=== PATIENT | female | born 1985 | race Caucasian/White ===

== ENCOUNTER 2018-11-26 11:00 | Inpatient (IN) | payer BC ==
[~2018-11-26] VITALS: Ht 162.6 cm; Wt 131.5 kg
[2018-11-26 11:41] LABS: HEMATOCRIT 37.6 % (36-48); MEAN CORPUSCULAR HEMOGLOBIN 28.2 pg (27.0-33.0); MEAN CORPUSCULAR HGB CONC 33.6 g/dL (32.0-36.0); MEAN CORPUSCULAR VOLUME 83.9 fL (79-99); PLATELET COUNT (AUTO) 205 K/uL (130-400); RED BLOOD CELL COUNT(AUTO) 4.48 MIL/uL (4.00-5.50); RED CELL DISTRIBUTION WIDTH 14.9 % (11.0-15.5); WHITE BLOOD COUNT (AUTO) 9.5 K/uL (4.8-10.8)
[2018-11-27 07:12] LABS: HEPATITIS Bs ANTIGEN SCREEN P Negative (Negative)
[2018-11-28] MEDS ORDERED: LACTATED RINGERS 1000ML 1,000 ML IV SCH (05:45)
[2018-11-28] MEDS ORDERED: CEFAZOLIN SODIUM 1 GM VIAL IVP PRN (05:45)
[2018-11-28] MEDS ORDERED: ONDANSETRON HCL 4 MG/2 ML VIAL ONE (06:33)
[2018-11-28] MEDS ORDERED: OXYTOCIN 10 USP UNITS/ML ONE ×2 (06:34→06:35)
[2018-11-28] MEDS ORDERED: FENTANYL CITRATE PF 50 MCG/1 ML 2ML VIAL ONE (06:35)
[2018-11-28] MEDS ORDERED: EPHEDRINE SULFATE 50 MG/ML AMPULE ONE ×2 (06:35→07:59)
[2018-11-28] MEDS ORDERED: DURAMORPH PF1 MG/ML 10ML AMP IV ONE (06:35)
[2018-11-28] MEDS ORDERED: CEFAZOLIN SODIUM 1 GM VIAL IVP ONE (07:48)
[2018-11-28] MEDS ORDERED: PHENYLEPHRINE HCL 10 MG/ML 1ML VIAL IV ONE (07:58)
[2018-11-28] MEDS ORDERED: CALDOLOR 800MG+NS 250ML 250 ML IV ONE (09:38)
[2018-11-28] MEDS ORDERED: MORPHINE SULFATE 2 MG/ML 1ML SYG ONE (09:39)
[2018-11-28] MEDS ORDERED: MORPHINE SULFATE 2 MG/ML 1ML SYG IVP PRN (09:45)
[2018-11-28] MEDS ORDERED: LEVO175T9 PO (09:56)
[2018-11-28] MEDS ORDERED: PNV1TABL17 PO (09:56)
[2018-11-28] MEDS ORDERED: DIPH25 PO (09:56)
[2018-11-28] MEDS ORDERED: METF-444 PO (09:56)
--- NOTE | 2018-11-28 11:05 | NUR ---
PATIENT ARRIVED FROM LABOR AND DELIVERY VIA BED. PATIENT AWAKE ALERT AND ORIENTED. DRESSING INTACT. FUNDUS FIRM, BLEEDING IS SCANT. SCDS APPLIED TO LOWER BILATERAL EXTREMITIES. PATIENT ORIENTED TO ROOM, CALL LIGHT LEFT IN REACH. ADVISED PATIENT TO CALL WITH ANY NEEDS OR CONCERNS.
[2018-11-28 11:09] VITALS: BP 127/61
[2018-11-28] MEDS ORDERED: MEPERIDINE-PF 75 MG/ML SYG IM PRN (11:30)
[2018-11-28] MEDS ORDERED: OXYTOCIN-LR 20 UNITS/1000 ML 1,000 ML IV PRN (11:30)
[2018-11-28] MEDS: ONDANSETRON HCL 4 MG/2 ML VIAL IVP PRN ×2 (12:09→16:08)
[2018-11-28] MEDS ORDERED: MEPERIDINE-PF 50 MG/ML SYG ONE ×2 (13:59→23:13)
[2018-11-28] MEDS ORDERED: MEPERIDINE-PF 25 MG/ML SYG ONE ×2 (13:59→23:13)
[2018-11-28] MEDS: PROMETHAZINE HCL 25 MG/ML 1ML AMPULE IM PRN ×2 (14:07→23:19)
[2018-11-28 16:59] VITALS: BP 130/63
--- NOTE | 2018-11-28 17:15 | NUR ---
COMFORT OOZING NOTED ON INCISION. GOLDIE MADE WHERE OOZING WAS NOTED. PERICARE GIVEN ASSISTED BY LINK CHAPMAN. CALL LIGHT LEFT IN REACH. AT BEDSIDE.
[2018-11-28] MEDS: CALDOLOR 800MG+NS 250ML 250 ML IV SCH (17:55)
[2018-11-28 19:19] VITALS: BP 119/71
[2018-11-28] MEDS: DEXTROSE 5 %-0.45 % NACL 1,000 ML IV PRN (21:43)
[2018-11-28 23:18] VITALS: BP 96/58
[2018-11-29] MEDS: CALDOLOR 800MG+NS 250ML 250 ML IV SCH (01:57)
[2018-11-29 03:35] VITALS: BP 98/51
[2018-11-29] MEDS ORDERED: ACETAMINOPHEN EXTRA STRENGTH 500 MG TABLET PO PRN (05:45)
[2018-11-29] MEDS ORDERED: DIPHENHYDRAMINE HCL 25 MG CAPSULE PO PRN (05:45)
[2018-11-29] MEDS ORDERED: LANOLIN 30GM OINTMENT TP PRN (05:45)
[2018-11-29] MEDS ORDERED: BISACODYL 10 MG SUPP.RECT RC PRN (05:45)
[2018-11-29] MEDS ORDERED: HYDROCODONE/ACETAMINOPHEN 5/325 MG TAB PO PRN (05:45)
[2018-11-29] MEDS: DEXTROSE 5 %-0.45 % NACL 1,000 ML IV PRN (06:14)
--- NOTE | 2018-11-29 06:45 | NUR ---
Marlow catheter removed, tip intact, pericare done, abdominal dressing removed, incision is dry and intact with acrlos, applied telfa dressing, applied abdominal dressing. assisted to bedside chair. pt tolerated well. informed to call for any concerns or assistance, pt voiced understanding. Addendum: 11/29/18 at 0736 by BRIDGETT AYALA RN Amended: Links added.
[2018-11-29 07:23] LABS: HEMATOCRIT 33.7 % (36-48); MEAN CORPUSCULAR HEMOGLOBIN 28.2 pg (27.0-33.0); MEAN CORPUSCULAR VOLUME 85.7 fL (79-99); PLATELET COUNT (AUTO) 163 K/uL (130-400); RED BLOOD CELL COUNT(AUTO) 3.93 MIL/uL (4.00-5.50); RED CELL DISTRIBUTION WIDTH 15.3 % (11.0-15.5); WHITE BLOOD COUNT (AUTO) 9.5 K/uL (4.8-10.8)
[2018-11-29 07:55] VITALS: BP 111/67
[2018-11-29] MEDS: DOCUSATE SODIUM 100 MG CAP PO SCH ×2 (09:42→23:39)
[2018-11-29] MEDS: SIMETHICONE 80 MG TAB.CHEW PO PRN ×4 (09:42→23:39)
[2018-11-29] MEDS: IBUPROFEN 600 MG TABLET PO PRN ×3 (09:43→23:40)
[2018-11-29] MEDS: DIPH,PERTUSS(ACELL),TET VAC/PF 0.5 ML VIAL IM SCH (09:43)
[2018-11-29] MEDS ORDERED: FLU VACC QS2019-20 36MOS UP/PF 60 MCG/0.5 ML ML IM ONE (09:45)
[2018-11-29 11:39] VITALS: BP 133/79
[2018-11-29] MEDS: ACETAMINOPHEN-CODEINE 300/30MG TAB PO PRN (13:42)
[2018-11-29 17:49] VITALS: BP 130/80
--- NOTE | 2018-11-29 17:50 | NUR ---
ACTIVITY PT AMBULATED HALLWAY, STEADY GAIT, TOLERATED WELL
[2018-11-29 19:34] VITALS: BP 129/78
[2018-11-29 23:30] VITALS: BP 124/68
[2018-11-30 03:49] VITALS: BP 105/56
[2018-11-30 07:36] VITALS: BP 123/65
[2018-11-30] MEDS: IBUPROFEN 600 MG TABLET PO PRN (07:49)
[2018-11-30] MEDS: DIPH,PERTUSS(ACELL),TET VAC/PF 0.5 ML VIAL IM SCH (09:00)
[2018-11-30] MEDS: DOCUSATE SODIUM 100 MG CAP PO SCH (09:26)
[2018-11-30] MEDS: SIMETHICONE 80 MG TAB.CHEW PO PRN (09:26)
[2018-11-30 11:50] VITALS: BP 124/78
[2018-11-30] MEDS: ACETAMINOPHEN-CODEINE 300/30MG TAB PO PRN (12:08)
--- NOTE | 2018-11-30 13:25 | NUR ---
ACTIVITY PT AMBULATING HALLWAY, STEADY GAIT, TOLERATING WELL, NO C/O PAIN
--- NOTE | 2018-11-30 15:25 | NUR ---
DISCHARGE PT STABLE, NO PAIN, NO COMPLAINTS; PT LEFT UNIT, VIA WHEELCHAIR, WITH BABY IN CAR-SEAT ON HER LAP, ACCOMPANIED BY RN AND SPOUSE CARRYING ALL PERSONAL BELONGINGS, INSTRUCTIONS, AND PRESCRIPTION; PT LEFT FACILITY IN PERSONAL VEHICLE
== END 2018-11-30 15:25 | disposition home or self-care (01) | DRG 788 ==
LOC: LDH 11-28 05:38 → WSH 11-28 11:14
PROVIDERS: ADMIT Obstetrics & Gynecology; ATTEND Obstetrics & Gynecology
PROC: 0DQ80ZZ Repair Small Intestine, Open Approach (ICD-10-PCS; 2018-11-28)
PROC: 3E02340 Introduction of Influenza Vaccine into Muscle, Percutaneous Approach (ICD-10-PCS; 2018-11-28)
PROC: 3E0234Z Introduction of Serum, Toxoid and Vaccine into Muscle, Percutaneous Approach (ICD-10-PCS; 2018-11-28)
PROC: 10D00Z0 Extraction of Products of Conception, High, Open Approach (ICD-10-PCS; principal; 2018-11-28 07:30)
DX: O34.211 Maternal care for low transverse scar from previous cesarean delivery (principal); O24.429 Gestational diabetes mellitus in childbirth, unspecified control; O99.284 Endocrine, nutritional and metabolic diseases complicating childbirth; E03.9 Hypothyroidism, unspecified; K66.0 Peritoneal adhesions (postprocedural) (postinfection); O99.62 Diseases of the digestive system complicating childbirth; Z37.0 Single live birth; Z3A.38 38 weeks gestation of pregnancy; Z23 Encounter for immunization
CPT/HCPCS: 36415; 59510; 82948; 85027; 86592; 86850; 86900; 86901; 87340; 90715; A4344; A4450; G0008; G0378; J0690; J1741; J2175; J2274; J2370; J2405; J2550; J2590; J3010; J3490; J7120